=== PATIENT | male | born 1995 | race Caucasian/White ===

== ENCOUNTER 2017-12-11 20:36 | Inpatient (IN) | payer MEDICAID ==
[~2017-12-11] VITALS: Ht 182.9 cm; Wt 59.9 kg
[~2017-12-11 20:36] MED LIST: NO HOME MEDS
[2017-12-11] MEDS ORDERED: LORazepam 2 mg/ml vial ONE (20:43)
[2017-12-11] MEDS ORDERED: LORazepam 2 mg/ml vial IV ONE ×2 (20:45→20:50)
[2017-12-11] MEDS ORDERED: normal saline 1000ml 1,000 ML IV ONE (20:47)
[2017-12-11] MEDS ORDERED: levetiracetam inj 1,500 MG in normal saline 100ml IV soln 85 ML IV STA (20:49)
[2017-12-11] MEDS ORDERED: levetiracetam inj 1,500 MG in normal saline 100ml IV soln 100 ML IV ONE (20:55)
[2017-12-11 20:57] LABS: BASOPHILS # (AUTO) 0.1 X10'3 (0-0.2); BASOPHILS % (AUTO) 0.6 % (0-1); EOSINOPHILS % (AUTO) 0.3 % (0-6); HEMATOCRIT 45.2 % (42.0-52.0); HEMOGLOBIN 15.3 g/dl (14.0-17.9); LYMPHOCYTES # (AUTO) 1.9 X10'3 (1.1-4.8); LYMPHOCYTES % (AUTO) 16.3 % (21-51); MEAN CORPUSCULAR HGB CONC 33.9 % (33.0-36.5); MEAN CORPUSCULAR VOLUME 88.6 FL (78-98); MEAN PLATELET VOLUME 8.5 FL (7.4-10.4); MONOCYTES # (AUTO) 0.7 X10'3 (0-0.9); MONOCYTES % (AUTO) 6.3 % (2-12); NEUTROPHILS # (AUTO) 8.9 X10'3 (1.8-7.7); NEUTROPHILS % (AUTO) 76.5 % (42-75); PLATELET COUNT 238 X10'3 (140-440); RED CELL DISTRIBUTION WIDTH 13.9 % (11.5-14.5); WHITE BLOOD COUNT 11.7 X10'3 (4.5-11.0)
[2017-12-11 21:10] LABS: ALANINE AMINOTRANSFERASE 24 U/L (12-78); ALBUMIN 3.7 G/DL (3.4-5.0); ALBUMIN/GLOBULIN RATIO 1.2 (1.1-1.5); ALKALINE PHOSPHATASE 68 IU/L (46-116); ANION GAP 13 (8-16); ASPARTATE AMINO TRANSFERASE 30 U/L (10-37); BILIRUBIN,TOTAL 0.6 MG/DL (0.1-1.0); BLOOD UREA NITROGEN 8 MG/DL (7-18); BUN/CREATININE RATIO 9.3 (5.4-32.0); CALCIUM 8.4 MG/DL (8.5-10.1); CHLORIDE 104 MMOL/L (99-107); CREATININE 0.86 MG/DL (0.60-1.10); ETHANOL 0.147 GM/DL (0.0-0.010); GLUCOSE 84 MG/DL (70-104); MAGNESIUM 1.9 MG/DL (1.5-2.4); SODIUM 140 MMOL/L (135-145); TOTAL CARBON DIOXIDE 22.7 MMOL/L (24-32); TOTAL PROTEIN 6.9 G/DL (6.4-8.2); eGFR > 90 ML/MIN
[2017-12-11 21:35] LABS: INR 1.1 INR; PARTIAL THROMBOPLASTIN TIME 26 SECONDS (22-32); PROTHROMBIN TIME 11.6 SECONDS (9.0-12.0)
[2017-12-11 21:44] LABS: CREATINE KINASE 403 U/L (39-308)
[2017-12-11 22:12] LABS: CLARITY,URINE CLEAR (Clear); COLOR,URINE YELLOW (Yellow); GLUCOSE, URINE NEGATIVE (Neg); KETONES,URINE NEGATIVE (Neg); LEUKOCYTE ESTERASE ,URINE NEGATIVE (Neg); NITRITES, URINE NEGATIVE (Neg); OCCULT BLOOD,URINE NEGATIVE (Neg); PH,URINE 5.5 (4.8-8.0); PROTEIN,URINE NEGATIVE (Neg); UA COLLECTION TYPE FOLEY CATH; UROBILINOGEN,URINE 0.2 E.U/dL (0.2-1.0)
[2017-12-11 22:23] LABS: URINE AMPHETAMINE SCREEN NEGATIVE (Neg); URINE BARBITUATE SCREEN NEGATIVE (Neg); URINE BENZODIAZEPINES SCREEN POSITIVE (Neg); URINE CANNABINOID SCREEN NEGATIVE (Neg); URINE COCAINE SCREEN NEGATIVE (Neg); URINE METHADONE SCREEN NEGATIVE (Neg); URINE OPIATE SCREEN NEGATIVE (Neg); URINE PHENCYCLIDINE SCREEN NEGATIVE (Neg)
[2017-12-11] MEDS ORDERED: acetaminophen 325mg tablet PO PRN ×2 (22:45)
[2017-12-11] MEDS ORDERED: ipratropium/albuterol 3ml nebule NEB PRN (22:45)
[2017-12-11] MEDS ORDERED: thiamine inj. 100 MG in normal saline 100ml IV soln 100 ML IV ONE (22:45)
[2017-12-11] MEDS ORDERED: acetaminophen 650mg rectal suppository RC PRN (22:45)
[2017-12-11] MEDS ORDERED: potassium Cl 20 mEq SR tablet PO PRN ×2 (22:45)
[2017-12-11] MEDS ORDERED: normal saline 1000ml 1,000 ML IVB ONE (22:45)
[2017-12-11] MEDS ORDERED: LORazepam 2 mg/ml vial IV PRN ×2 (22:45)
[2017-12-11] MEDS ORDERED: ondansetron/PF 4mg/2ml inj IV PRN (22:45)
[2017-12-11] MEDS ORDERED: magnesium hydroxide 30ml (MOM) UD suspension PO PRN (22:45)
[2017-12-11] MEDS ORDERED: SERTRALINE HCL 25 MG TABLET (23:00)
[2017-12-11] MEDS: normal saline 1000ml 1,000 ML IV SCH (23:12)
[2017-12-11 23:30] VITALS: BP 119/64
[2017-12-12] VITALS (15 sets, daily range): BP systolic 94–114; BP diastolic 41–68
[2017-12-12 05:23] LABS: BASOPHILS # (AUTO) 0.1 X10'3 (0-0.2); BASOPHILS % (AUTO) 0.5 % (0-1); EOSINOPHILS # (AUTO) 0.2 X10'3 (0-0.9); EOSINOPHILS % (AUTO) 2.4 % (0-6); HEMATOCRIT 42.3 % (42.0-52.0); HEMOGLOBIN 14.2 g/dl (14.0-17.9); LYMPHOCYTES # (AUTO) 2.3 X10'3 (1.1-4.8); LYMPHOCYTES % (AUTO) 22.6 % (21-51); MEAN CORPUSCULAR HEMOGLOBIN 29.8 PG (27.0-31.0); MEAN CORPUSCULAR HGB CONC 33.5 % (33.0-36.5); MEAN PLATELET VOLUME 8.6 FL (7.4-10.4); MONOCYTES # (AUTO) 0.8 X10'3 (0-0.9); MONOCYTES % (AUTO) 7.6 % (2-12); NEUTROPHILS # (AUTO) 6.9 X10'3 (1.8-7.7); NEUTROPHILS % (AUTO) 66.9 % (42-75); PLATELET COUNT 207 X10'3 (140-440); RED BLOOD COUNT 4.76 X10'6 (4.70-6.10); RED CELL DISTRIBUTION WIDTH 14.1 % (11.5-14.5); WHITE BLOOD COUNT 10.3 X10'3 (4.5-11.0)
[2017-12-12 05:40] LABS: ALANINE AMINOTRANSFERASE 20 U/L (12-78); ALBUMIN 3.1 G/DL (3.4-5.0); ALBUMIN/GLOBULIN RATIO 1.1 (1.1-1.5); ALKALINE PHOSPHATASE 60 IU/L (46-116); AMYLASE 30 U/L (25-115); ANION GAP 9 (8-16); ASPARTATE AMINO TRANSFERASE 26 U/L (10-37); BILIRUBIN,TOTAL 0.8 MG/DL (0.1-1.0); BLOOD UREA NITROGEN 7 MG/DL (7-18); BUN/CREATININE RATIO 8.9 (5.4-32.0); CALCIUM 7.7 MG/DL (8.5-10.1); CHLORIDE 110 MMOL/L (99-107); CREATININE 0.79 MG/DL (0.60-1.10); GLUCOSE 77 MG/DL (70-104); LIPASE 92 U/L (73-393); MAGNESIUM 1.8 MG/DL (1.5-2.4); PHOSPHORUS 3.8 MG/DL (2.3-4.5); POTASSIUM 3.9 MMOL/L (3.5-5.1); SODIUM 143 MMOL/L (135-145); TOTAL PROTEIN 5.8 G/DL (6.4-8.2); eGFR > 90 ML/MIN
[2017-12-12] MEDS: normal saline 1000ml 1,000 ML IV SCH ×3 (05:46→18:50)
[2017-12-12] MEDS ORDERED: SERT25TA5 PO (06:46)
[2017-12-12] MEDS ORDERED: folic acid inj. 2 MG, thiamine inj. 100 MG, MVI, adult No.4 with vit. K 10 ML in dextro... IV SCH ×4 (08:00)
[2017-12-12] MEDS ORDERED: levetiracetam inj 1,000 MG in normal saline 100ml IV soln 90 ML IV SCH (08:00)
[2017-12-12] MEDS: enoxaparin 40mg/0.4ml syringe SUBCUT SCH (08:25)
[2017-12-12] MEDS: docusate sod 100mg capsule PO SCH ×2 (08:25→19:39)
[2017-12-12] MEDS: sertraline 25mg tablet PO SCH (10:05)
[2017-12-12] MEDS: levetiracetam 250mg tablet PO SCH (19:39)
[2017-12-13] MEDS: normal saline 1000ml 1,000 ML IV SCH ×2 (01:23→08:09)
[2017-12-13 05:47] LABS: BASOPHILS % (AUTO) 0.7 % (0-1); EOSINOPHILS # (AUTO) 0.2 X10'3 (0-0.9); EOSINOPHILS % (AUTO) 2.9 % (0-6); HEMATOCRIT 42.4 % (42.0-52.0); HEMOGLOBIN 14.3 g/dl (14.0-17.9); LYMPHOCYTES # (AUTO) 2.1 X10'3 (1.1-4.8); MEAN CORPUSCULAR HEMOGLOBIN 30.2 PG (27.0-31.0); MEAN CORPUSCULAR HGB CONC 33.8 % (33.0-36.5); MEAN CORPUSCULAR VOLUME 89.3 FL (78-98); MEAN PLATELET VOLUME 9.2 FL (7.4-10.4); MONOCYTES # (AUTO) 0.5 X10'3 (0-0.9); NEUTROPHILS # (AUTO) 3.7 X10'3 (1.8-7.7); NEUTROPHILS % (AUTO) 56.4 % (42-75); PLATELET COUNT 193 X10'3 (140-440); RED BLOOD COUNT 4.75 X10'6 (4.70-6.10); RED CELL DISTRIBUTION WIDTH 13.3 % (11.5-14.5); WHITE BLOOD COUNT 6.5 X10'3 (4.5-11.0)
[2017-12-13 06:00] VITALS: BP 104/64
[2017-12-13 06:42] LABS: ALANINE AMINOTRANSFERASE 25 U/L (12-78); ALBUMIN 2.7 G/DL (3.4-5.0); ALKALINE PHOSPHATASE 55 IU/L (46-116); ANION GAP 7 (8-16); ASPARTATE AMINO TRANSFERASE 24 U/L (10-37); BILIRUBIN,TOTAL 0.5 MG/DL (0.1-1.0); BLOOD UREA NITROGEN 6 MG/DL (7-18); BUN/CREATININE RATIO 6.7 (5.4-32.0); CHLORIDE 108 MMOL/L (99-107); CREATININE 0.89 MG/DL (0.60-1.10); GLUCOSE 84 MG/DL (70-104); PHOSPHORUS 3.3 MG/DL (2.3-4.5); SODIUM 141 MMOL/L (135-145); TOTAL CARBON DIOXIDE 26.3 MMOL/L (24-32); TOTAL PROTEIN 5.4 G/DL (6.4-8.2); eGFR > 90 ML/MIN
[2017-12-13] MEDS ORDERED: folic acid 1mg tablet PO SCH (08:00)
[2017-12-13] MEDS ORDERED: multivitamins, therapeutics tablet PO SCH (08:00)
[2017-12-13] MEDS ORDERED: thiamine 100mg tablet PO SCH (08:00)
[2017-12-13] MEDS: docusate sod 100mg capsule PO SCH (08:00)
[2017-12-13] MEDS: enoxaparin 40mg/0.4ml syringe SUBCUT SCH (08:09)
[2017-12-13] MEDS: levetiracetam 250mg tablet PO SCH (08:09)
[2017-12-13] MEDS: sertraline 25mg tablet PO SCH (08:09)
[2017-12-13 10:00] VITALS: BP 108/62
== END 2017-12-13 14:00 | disposition left against medical advice (07) | DRG 53 ==
LOC: ER 20:36 → ED HOLD 22:45 → ICU 2S 23:30 → ORTHO 4S 12-12 12:05
PROVIDERS: ADMIT Internal Medicine Critical Care Medicine; ATTEND Internal Medicine Critical Care Medicine
DX: G40.901 Epilepsy, unspecified, not intractable, with status epilepticus (principal); F32.9 Major depressive disorder, single episode, unspecified; F12.90 Cannabis use, unspecified, uncomplicated; J32.3 Chronic sphenoidal sinusitis; F10.129 Alcohol abuse with intoxication, unspecified; F17.200 Nicotine dependence, unspecified, uncomplicated; Z53.21 Procedure and treatment not carried out due to patient leaving prior to being seen by health care provider; Z88.1 Allergy status to other antibiotic agents; Z68.1 Body mass index [BMI] 19.9 or less, adult
CPT/HCPCS: 36415; 70450; 80053; 80305; 80320; 81003; 82150; 82550; 82948; 83605; 83690; 83735; 83874; 84100; 84439; 84443; 85025; 85610; 85730; 87070; 93005; 94760; 95816; 97116; 97161; 97530; A6213; C1758; J1650; J1953; J2060; J3411; J3490; J7030; J7060

== ENCOUNTER 2019-09-07 21:08 | Emergency (ER) | payer MEDICAID, OTHER ==
[~2019-09-07] VITALS: Ht 172.7 cm; Wt 57.7 kg
[~2019-09-07 21:08] MED LIST changes: -NO HOME MEDS; +SERT25TA5 PO
--- NOTE | 2019-09-07 21:30 | NUR ---
PATIENT SITTING QUIETLY ON BED NO SIGN OF DISTRESS, CHANGED INTO GREEN SCRUBS, LABS DRAW.
[2019-09-07 21:43] LABS: EOSINOPHILS # (AUTO) 0.1 X10'3 (0-0.9); HEMOGLOBIN 16.6 g/dl (14.0-17.9); MEAN CORPUSCULAR HEMOGLOBIN 30.4 PG (27.0-31.0); MEAN PLATELET VOLUME 8.4 FL (7.4-10.4)
[2019-09-07 21:45] LABS: BASOPHILS # (AUTO) 0.1 X10'3 (0-0.2); BASOPHILS % (AUTO) 0.8 % (0-1); EOSINOPHILS % (AUTO) 0.7 % (0-6); HEMATOCRIT 49.2 % (42.0-52.0); MEAN CORPUSCULAR HGB CONC 33.7 g/dL (33.0-36.5); MEAN CORPUSCULAR VOLUME 90.1 FL (78-98); MONOCYTES # (AUTO) 0.4 X10'3 (0-0.9); MONOCYTES % (AUTO) 4.7 % (2-12); NEUTROPHILS # (AUTO) 6.7 X10'3 (1.8-7.7); NEUTROPHILS % (AUTO) 71.8 % (42-75); PLATELET COUNT 280 X10'3 (140-440); RED BLOOD COUNT 5.46 X10'6 (4.70-6.10); WHITE BLOOD COUNT 9.3 X10'3 (4.5-11.0)
[2019-09-07 21:50] LABS: ALANINE AMINOTRANSFERASE 23 U/L (12-78); ALBUMIN 4.3 G/DL (3.4-5.0); ALBUMIN/GLOBULIN RATIO 1.3 (1.1-1.5); ALKALINE PHOSPHATASE 89 IU/L (46-116); ANION GAP 6 (8-16); ASPARTATE AMINO TRANSFERASE 19 U/L (10-37); BILIRUBIN,TOTAL 0.4 MG/DL (0.1-1.0); BLOOD UREA NITROGEN 13 MG/DL (7-18); BUN/CREATININE RATIO 12.3 (5.4-32.0); CALCIUM 9.5 MG/DL (8.5-10.1); CHLORIDE 104 MMOL/L (99-107); CREATININE 1.06 MG/DL (0.60-1.10); GLUCOSE 92 MG/DL (70-104); POTASSIUM 4.3 MMOL/L (3.5-5.1); SODIUM 140 MMOL/L (135-145); TOTAL CARBON DIOXIDE 30.1 MMOL/L (24-32); TOTAL PROTEIN 7.6 G/DL (6.4-8.2); eGFR 86 ML/MIN
--- NOTE | 2019-09-07 22:00 | NUR ---
PATIENT ESCORTED TO BATHROOM FOR COLLECTION OF URINE SAMPLE PATIENT CALM AND COOPERATIVE
[2019-09-07 22:01] LABS: ETHANOL < 0.010 GM/DL (0.0-0.010)
[2019-09-07 22:34] LABS: URINE AMPHETAMINE SCREEN POSITIVE (Neg); URINE BARBITUATE SCREEN NEGATIVE (Neg); URINE BENZODIAZEPINES SCREEN NEGATIVE (Neg); URINE CANNABINOID SCREEN NEGATIVE (Neg); URINE COCAINE SCREEN NEGATIVE (Neg); URINE METHADONE SCREEN NEGATIVE (Neg); URINE OPIATE SCREEN NEGATIVE (Neg); URINE PHENCYCLIDINE SCREEN NEGATIVE (Neg)
[2019-09-07 22:35] LABS: CLARITY,URINE SLIGHTLY CLOUDY (Clear); COLOR,URINE YELLOW (Yellow); GLUCOSE, URINE NEGATIVE (Neg); KETONES,URINE NEGATIVE (Neg); LEUKOCYTE ESTERASE ,URINE NEGATIVE (Neg); NITRITES, URINE NEGATIVE (Neg); OCCULT BLOOD,URINE NEGATIVE (Neg); PROTEIN,URINE NEGATIVE (Neg)
[2019-09-07 22:39] LABS: UA COLLECTION TYPE CLN CATCH MIDSTREAM
[2019-09-07 22:42] LABS: BACTERIA,URINE NONE SEEN /HPF (Neg); CAL OXALATE CRYSTALS 4+ /HPF (NEGATIVE); RBC,URINE NONE SEEN /HPF (0-2); SQUAMOUS EPITHELIAL CELL,UR NONE SEEN /LPF (FEW); WBC,URINE NONE SEEN /HPF (0-4)
--- NOTE | 2019-09-07 23:00 | NUR ---
PATIENT SLEEPING ON LEFT SIDE
--- NOTE | 2019-09-08 | NUR ---
PATIENT SLEEPING ON BACK
--- NOTE | 2019-09-08 02:00 | NUR ---
PATIENT CONTINUING TO SLEEP
--- NOTE | 2019-09-08 03:00 | NUR ---
PATIENT CONTINUING TO SLEEP OCCASIONALLY REPOSITIONING FOR COMFORT
--- NOTE | 2019-09-08 04:00 | NUR ---
PATIENT CONTINUING TO SLEEP
--- NOTE | 2019-09-08 05:00 | NUR ---
PATIENT SLEEPING COMFORTABLY
--- NOTE | 2019-09-08 06:45 | NUR ---
Pt resting with eyes closed, effortless respirations observed.
--- NOTE | 2019-09-08 07:25 | NUR ---
PACKET FAXED TO [facility]
--- NOTE | 2019-09-08 08:45 | NUR ---
PT REMAINS CALM AND COOPERATIVE. PT ATE BREAKFAST TRAY AND NOW RESTING AGAIN.
[2019-09-08 10:30] VITALS: BP 113/75
--- NOTE | 2019-09-08 10:45 | NUR ---
PT WAS SEEN BY [facility]. PT TO REMAIN ON 5150.
--- NOTE | 2019-09-08 12:20 | NUR ---
SPOKE WITH ROLF FROM [facility] REGARDING POSSIBLE PLACEMENT. PT CASE TO BE PRESENTED TO THEIR MD.
--- NOTE | 2019-09-08 12:52 | NUR ---
Pt. was walked over to bed 27 in overflow. Patient has superficial scratches to left arms. He states that he cannot hear out of his right ear, and it is a little painful. Patient denies SI, denies A/V,A/H. Patient is calm and cooperative at this time.
--- NOTE | 2019-09-08 13:42 | NUR ---
Carlos silvestre in [facility] - 09/08/19 at 1348 by [email or web address] Breaking primary, RN pt is supine in bed, eyes closed, regular breathing present, no s/s of agitation observed at this time
--- NOTE | 2019-09-08 13:57 | NUR ---
pt was accepted at [facility] by Dr Singh, they are coming to get him
== END 2019-09-08 14:45 ==
LOC: ER 21:08
DX: S51.812A Laceration without foreign body of left forearm, initial encounter (principal); F25.9 Schizoaffective disorder, unspecified; F11.90 Opioid use, unspecified, uncomplicated; F12.90 Cannabis use, unspecified, uncomplicated; F15.10 Other stimulant abuse, uncomplicated; Z88.1 Allergy status to other antibiotic agents; X78.1XXA Intentional self-harm by knife, initial encounter; Y93.89 Activity, other specified; Y92.89 Other specified places as the place of occurrence of the external cause; Y99.9 Unspecified external cause status
CPT/HCPCS: 36415; 80053; 80305; 80320; 81001; 84443; 85025; 99285

== ENCOUNTER 2020-08-10 20:16 | Emergency (ER) | payer BC ==
[~2020-08-10] VITALS: Ht 175.3 cm; Wt 72.7 kg
[~2020-08-10 20:16] MED LIST changes: +SERT-432 PO; -SERT25TA5 PO
[2020-08-10 20:21] VITALS: BP 134/87
--- NOTE | 2020-08-10 20:27 | NUR ---
radio despatcher informed of written 5150, pt placed in chair in front of room 16.
--- NOTE | 2020-08-10 20:45 | NUR ---
The patient admitted the ER overflow on a 5150 for being a danger to himself. He has a hx of bipolar and schizophrenia per the patient. 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 He stated that he has been staying in the rg. He is very dirty and disheveled. He reports he is suicidal to cut his arms. He reports he has not eaten in 5 days and food and fluids given and encouragaed. He reports he has been hearing voices and some of the voices have been telling him to kill himself. He reports one prior 5150 approximately one year ago.
[2020-08-10 20:51] LABS: BASOPHILS # (AUTO) 0.1 X10'3 (0-0.2); BASOPHILS % (AUTO) 0.8 % (0-1); EOSINOPHILS # (AUTO) 0.1 X10'3 (0-0.9); EOSINOPHILS % (AUTO) 0.6 % (0-6); HEMATOCRIT 47.5 % (42.0-52.0); LYMPHOCYTES % (AUTO) 23.5 % (21-51); MEAN CORPUSCULAR HEMOGLOBIN 29.2 PG (27.0-31.0); MEAN CORPUSCULAR HGB CONC 33.8 g/dL (33.0-36.5); MEAN CORPUSCULAR VOLUME 86.6 FL (78-98); MONOCYTES # (AUTO) 0.6 X10'3 (0-0.9); MONOCYTES % (AUTO) 7.1 % (2-12); NEUTROPHILS # (AUTO) 5.7 X10'3 (1.8-7.7); PLATELET COUNT 305 X10'3 (140-440); RED BLOOD COUNT 5.48 X10'6 (4.70-6.10); RED CELL DISTRIBUTION WIDTH 12.9 % (11.5-14.5); WHITE BLOOD COUNT 8.4 X10'3 (4.5-11.0)
[2020-08-10 21:01] LABS: ALANINE AMINOTRANSFERASE 35 U/L (12-78); ALBUMIN 4.5 G/DL (3.4-5.0); ALBUMIN/GLOBULIN RATIO 1.3 (1.1-1.5); ALKALINE PHOSPHATASE 113 IU/L (46-116); ANION GAP 12 (8-16); ASPARTATE AMINO TRANSFERASE 20 U/L (10-37); BILIRUBIN,TOTAL 0.8 MG/DL (0.1-1.0); BLOOD UREA NITROGEN 10 MG/DL (7-18); BUN/CREATININE RATIO 10.1 (5.4-32.0); CALCIUM 9.1 MG/DL (8.5-10.1); CHLORIDE 99 MMOL/L (99-107); CREATININE 0.99 MG/DL (0.60-1.10); ETHANOL < 0.010 GM/DL (0.0-0.010); GLUCOSE 97 MG/DL (70-104); POTASSIUM 3.8 MMOL/L (3.5-5.1); SODIUM 137 MMOL/L (135-145); TOTAL CARBON DIOXIDE 26.1 MMOL/L (24-32); TOTAL PROTEIN 7.9 G/DL (6.4-8.2); eGFR > 90 ML/MIN
[2020-08-10 21:03] LABS: ACETAMINOPHEN < 2.0 UG/ML (10-30)
[2020-08-10] MEDS ORDERED: TRAZ-256 PO (21:06)
[2020-08-10] MEDS ORDERED: GABA600T13 PO (21:10)
[2020-08-10] MEDS ORDERED: LITH300C PO (21:10)
[2020-08-10] MEDS ORDERED: BUPR1FIL17 SL (21:10)
[2020-08-10] MEDS ORDERED: OLAN15TA3 PO (21:10)
[2020-08-10] MEDS ORDERED: LITH150C8 PO (21:10)
--- NOTE | 2020-08-10 21:11 | NUR ---
PA at the bedside to examine the patient.
--- NOTE | 2020-08-10 22:38 | NUR ---
The patient has been unable to void. Fluids encouraged.
--- NOTE | 2020-08-10 23:52 | NUR ---
The patient has been moved to bed 14 in the main ER and appears to be sleeping at this time.
--- NOTE | 2020-08-11 00:37 | NUR ---
The patient appears to be sleeping
--- NOTE | 2020-08-11 02:49 | NUR ---
The patient appears to be sleeping
--- NOTE | 2020-08-11 03:54 | NUR ---
The patient appears to be sleeping
--- NOTE | 2020-08-11 04:22 | NUR ---
The patient appears to be sleeping
[2020-08-11 05:32] LABS: URINE AMPHETAMINE SCREEN POSITIVE (Neg); URINE BARBITUATE SCREEN NEGATIVE (Neg); URINE BENZODIAZEPINES SCREEN NEGATIVE (Neg); URINE CANNABINOID SCREEN NEGATIVE (Neg); URINE COCAINE SCREEN NEGATIVE (Neg); URINE METHADONE SCREEN NEGATIVE (Neg); URINE OPIATE SCREEN NEGATIVE (Neg); URINE PHENCYCLIDINE SCREEN NEGATIVE (Neg)
[2020-08-11] MEDS ORDERED: buprenorphine/naloxone 2-0.5mg sublingual tablet SL SCH (08:00)
[2020-08-11] MEDS ORDERED: gabapentin 300mg capsule PO SCH (08:00)
[2020-08-11] MEDS ORDERED: lithium carbonate 150mg capsule PO SCH ×2 (08:00→12:00)
[2020-08-11] MEDS ORDERED: OLANZAPINE 5 MG TABLET PO SCH (21:00)
[2020-08-11] MEDS ORDERED: traZODone 50mg tablet PO SCH (21:00)
== END 2020-08-11 16:43 | disposition home or self-care (01) ==
LOC: ER 20:17
DX: R45.851 Suicidal ideations (principal); Z20.822 Contact with and (suspected) exposure to COVID-19; F15.90 Other stimulant use, unspecified, uncomplicated; Z86.69 Personal history of other diseases of the nervous system and sense organs; Z72.89 Other problems related to lifestyle; Z88.1 Allergy status to other antibiotic agents; Z79.899 Other long term (current) drug therapy
CPT/HCPCS: 36415; 80053; 80305; 80320; 80329; 85025; 87426; 99285

== ENCOUNTER 2021-08-01 17:55 | Emergency (ER) | payer BC, MEDICAID ==
[~2021-08-01] VITALS: Ht 172.7 cm; Wt 74.5 kg
[~2021-08-01 17:55] MED LIST changes: +BUPR1FIL17 SL; +GABA600T13 PO; +LITH150C8 PO; +LITH300C PO; +OLAN15TA3 PO; -SERT-432 PO; +TRAZ-256 PO
[2021-08-01 19:00] LABS: BASOPHILS % (AUTO) 0.3 % (0-1); EOSINOPHILS # (AUTO) 0.2 X10'3 (0-0.9); EOSINOPHILS % (AUTO) 1.5 % (0-6); HEMOGLOBIN 15.8 g/dl (14.0-17.9); LYMPHOCYTES # (AUTO) 1.3 X10'3 (1.1-4.8); LYMPHOCYTES % (AUTO) 10.7 % (21-51); MEAN CORPUSCULAR HEMOGLOBIN 28.7 PG (27.0-31.0); MEAN CORPUSCULAR HGB CONC 33.6 g/dL (33.0-36.5); MEAN CORPUSCULAR VOLUME 85.6 FL (78-98); MEAN PLATELET VOLUME 8.2 FL (7.4-10.4); MONOCYTES # (AUTO) 0.8 X10'3 (0-0.9); MONOCYTES % (AUTO) 6.8 % (2-12); NEUTROPHILS # (AUTO) 9.5 X10'3 (1.8-7.7); NEUTROPHILS % (AUTO) 80.7 % (42-75); PLATELET COUNT 254 X10'3 (140-440); RED BLOOD COUNT 5.49 X10'6 (4.70-6.10); RED CELL DISTRIBUTION WIDTH 13.3 % (11.5-14.5); WHITE BLOOD COUNT 11.8 X10'3 (4.5-11.0)
[2021-08-01 19:20] LABS: ALANINE AMINOTRANSFERASE 25 U/L (12-78); ALBUMIN 3.9 G/DL (3.4-5.0); ALBUMIN/GLOBULIN RATIO 1.1 (1.1-1.5); ALKALINE PHOSPHATASE 75 IU/L (46-116); ANION GAP 11 (8-16); ASPARTATE AMINO TRANSFERASE 14 U/L (10-37); BILIRUBIN,TOTAL 0.7 MG/DL (0.1-1.0); BLOOD UREA NITROGEN 10 MG/DL (7-18); BUN/CREATININE RATIO 10.6 (5.4-32.0); CALCIUM 8.7 MG/DL (8.5-10.1); CHLORIDE 102 MMOL/L (99-107); CREATININE 0.94 MG/DL (0.60-1.10); GLUCOSE 104 MG/DL (70-104); LIPASE 76 U/L (73-393); POTASSIUM 3.9 MMOL/L (3.5-5.1); SODIUM 137 MMOL/L (135-145); TOTAL CARBON DIOXIDE 24.4 MMOL/L (24-32); TOTAL PROTEIN 7.3 G/DL (6.4-8.2); eGFR > 90 ML/MIN
[2021-08-01] MEDS ORDERED: normal saline 1000ML IV soln IVB ONE (20:30)
[2021-08-01] MEDS ORDERED: morphine 4 MG/ML inj SYRINge IV PRN (20:30)
[2021-08-01] MEDS ORDERED: ondansetron/PF 4mg/2ml inj IV ONE (20:30)
[2021-08-01] MEDS ORDERED: iohexol 300mg/ml 100ml inj. ONE (20:33)
[2021-08-01 20:43] LABS: CLARITY,URINE CLEAR (Clear); COLOR,URINE YELLOW (Yellow); GLUCOSE, URINE NEGATIVE (Neg); KETONES,URINE NEGATIVE (Neg); LEUKOCYTE ESTERASE ,URINE NEGATIVE (Neg); NITRITES, URINE NEGATIVE (Neg); OCCULT BLOOD,URINE NEGATIVE (Neg); PROTEIN,URINE NEGATIVE (Neg); UROBILINOGEN,URINE 0.2 E.U/dL (0.2-1.0)
[2021-08-01 20:49] LABS: UA COLLECTION TYPE CLN CATCH MIDSTREAM
[2021-08-01 22:08] VITALS: BP 134/89
== END 2021-08-01 22:12 | disposition home or self-care (01) ==
LOC: ER 17:56
DX: A08.39 Other viral enteritis (principal); F15.10 Other stimulant abuse, uncomplicated; Z88.1 Allergy status to other antibiotic agents
CPT/HCPCS: 36415; 74177; 80053; 81003; 83690; 85025; 96361; 96374; 99285; J2405; J7030; Q9967